=== PATIENT | female | born 1995 | race African-American/Black ===

== ENCOUNTER 2021-03-11 08:16 | Outpatient (REF) | payer OTHER, SELFPAY ==
--- NOTE | 2021-03-11 09:02 | ECG_ITS ---
Test Reason : PALPITATIONS Blood Pressure : / mmHG Vent. Rate : 062 BPM Atrial Rate : 062 BPM P-R Int : 158 ms QRS Dur : 092 ms QT Int : 394 ms P-R-T Axes : 041 017 012 degrees QTc Int : 399 ms Normal sinus rhythm with sinus arrhythmia Nonspecific T wave abnormality Abnormal ECG No previous ECGs available Referred By: Staci Littlejohn Electronically Signed By:MACI DRISCOLL
[2021-03-11 10:01] LABS: Glucose Urine UA NEG (NEG); Leukocyte Esterase Urine 2+ (NEG); Nitrite Urine NEG (NEG); PH 6.5 (5.0-8.0); Urine Blood NEG (NEG); Urine Ketones NEG (NEG); Urine Protein NEG (NEG-TRACE)
[2021-03-11 10:07] LABS: MANUAL DIFF FLAG NO
[2021-03-11 10:08] LABS: Appearance Urine CLOUDY; Color Urine YELLOW
[2021-03-11 10:15] LABS: Basophils Percent Auto 0.5 % (0-2); Eosinophils Absolute Auto 0.1 X10*3/uL (0.0-0.4); Eosinophils Percent Auto 1.5 % (0-4); Hematocrit 44.3 % (37-47); Hemoglobin 14.2 g/dl (12.0-16.0); Imm Gran Abs Auto 0.02 X10*3/uL (0.00-0.03); Imm Gran Pct Auto 0.4 % (0.0-0.4); Lymphocytes Absolute Auto 2.3 X10*3/uL (1.2-4.9); Lymphocytes Percent Auto 42.6 % (20-40); Mean Corpuscular HGB Conc 32.1 g/dl (31.0-35.0); Mean Corpuscular Hemoglobin 28.6 pg (27.0-33.0); Mean Corpuscular Volume 89.3 fL (80-98); Mean Platelet Volume 10.5 fL (9.4-12.3); Monocytes Absolute Auto 0.4 X10*3/uL (0.1-1.2); Monocytes Percent Auto 7.7 % (2-11); Neutrophils Absolute Auto 2.6 X10*3/uL (2.0-8.3); Neutrophils Percent Auto 47.3 % (45-73); Platelet Count 328 X10*3/uL (160-400); Red Blood Count 4.96 X10*6/uL (4.20-5.50); Red Cell Distribution Width 13.8 % (11.0-16.0); White Blood Count 5.5 X10*3/uL (4.8-10.8)
[2021-03-11 10:54] LABS: Alanine Aminotransferase 14 U/L (0-31); Alkaline Phosphatase 70 U/L (39-117); Anion Gap 12 (12-20); Aspartate Amino Transferase 24 U/L (5-31); Bilirubin Direct 0.2 mg/dL (0.0-0.5); Bilirubin Total 0.7 mg/dL (0.0-1.0); Blood Urea Nitrogen 10 mg/dL (9-16); Calcium 9.1 mg/dL (8.4-10.2); Carbon Dioxide 23 mmol/L (22-29); Chloride 105 mmol/L (96-108); Estimated Glomerular Filt Rate > 60; Glucose Random 78 mg/dL (60-115); Lipase 21 U/L (8-78); Sodium 136 mmol/L (135-145); Total Protein 7.4 g/dL (6.5-8.0)
[2021-03-11 11:06] LABS: Amorphous Sediment Urine 1+ /LPF; Mucus Urine 3+ /LPF; Squamous Epithelial Cell Urine 3+ /LPF
[2021-03-11 11:17] LABS: Free T4 (Free Thyroxine) 1.01 ng/dL (0.71-1.85); Thyroid Stimulating Hormone 1.01 uIU/mL (0.32-4.0)
== END 2021-03-11 08:17 | disposition home or self-care (01) ==
LOC: HO.LAB 08:16
PROVIDERS: Visit Provider Nurse Practitioner Psychiatric/Mental Health
DX: R00.2 Palpitations (principal)
CPT/HCPCS: 36415; 80053; 80076; 81001; 81003; 83690; 83735; 84439; 84443; 85025; 93005

== ENCOUNTER 2023-05-02 13:59 | Outpatient (RCR) | payer OTHER, SELFPAY ==
--- NOTE | 2023-05-03 13:15 | PC.NURSE ---
Adele called out sick 05/02/23 stating to staff that she has a fever and will be in the program tomorrow if feeling better. Adele called out sick to the program today. She called staff and stated she is being treated for Strep Throat and can not come to the program for 48 hours. [facility] staff is aware. Patient will be called and rescheduled for a reassessment/intake.
== END 2023-05-02 23:59 | disposition home or self-care (01) ==
LOC: HO.PHPA 13:59
PROVIDERS: Visit Provider Psychiatry & Neurology Psychiatry
DX: F33.1 Major depressive disorder, recurrent, moderate (principal); F43.10 Post-traumatic stress disorder, unspecified; F41.1 Generalized anxiety disorder; F10.20 Alcohol dependence, uncomplicated
CPT/HCPCS: 90791

== ENCOUNTER → 2023-05-13 11:15 | Outpatient (BNV) | payer OTHER, SELFPAY | PROVIDERS: Visit Provider Clinical Nurse Specialist Psychiatric/Mental Health | DX: F31.81 Bipolar II disorder (principal) | CPT/HCPCS: 90792; 99212; 99213; 99214 ==

== ENCOUNTER 2023-05-24 16:39 | Emergency (ER) | payer OTHER, SELFPAY ==
[2023-05-24 16:45] VITALS: BP 124/88; PULSE 79; RESP 20; TEMP 36.7; O2SAT 99; BMI 31.0
--- NOTE | 2023-05-24 16:50 | ED.PSYCH ---
HPI - Psych General Chief Complaint: Psychiatric Symptoms Stated Complaint: needs pysch eval Time Seen by Provider: 05/24/23 17:16 Related Data Previous Rx's Medication Instructions Recorded aripiprazole 15 mg tablet 7.5 mg PO DAILY #15 tabs 05/19/23 dextroamphetamine-amphetamine 10 10 mg PO DAILY #10 tabs 05/19/23 mg tablet (Adderall) hydroxyzine HCl 50 mg tablet 50 mg PO BID PRN anxiety and sleep 05/19/23 #15 tabs Allergies Allergy/AdvReac Type Severity Reaction Status Date / Time No Known Allergies Allergy Verified 05/12/23 09:50 [facility] Social History Social History Household Members: Significant Other and Children Household Members Other:: Marta Islas (partner), partner's 2 sons, 2 and 10 years old Alcohol intake: never Patient Tobacco Use Status: Current everyday Tobacco user Tobacco use type: Smokeless Tobacco Smoked in Last 30 Days: Yes Use of substances other than those prescribed or required for medical reasons: Yes Substance Use Type: Marijuana Advance Directives: No Advance Directives Information Provided: Yes Healthcare Proxy: No Guardian: No Patient : No Physical Exam Vital Signs: Vital Signs: Last Vital Signs Temp 96.8 F 05/25/23 06:46 Pulse 56 05/25/23 06:46 Resp 15 05/25/23 06:46 BP 112/77 05/25/23 06:46 Pulse Ox 100 05/25/23 06:46 O2 Del Method Room Air 05/25/23 06:46 BMI result Body Mass Index 31.0 Course Course Course Narrative: This is a rapid medical exam: Additional HPI, ROS, PE not included below will be deferred to primary provider. Patient is a 28-year-old female with history of ADHD, Bipolar II, PTSD presenting to the emergency department from [facility] with report of passive suicidal ideation, denies any plan. States she is taking her medications as prescribed. Started Abilify one week ago. Denies any homicidal ideation, auditory or visual hallucinations. Plan: pod, labs, UA, urine drug screen, Covid Reevaluation(s) Reevaluation #1: Continue with physician observation, patient presents with passive SI, no acute events overnight, plan for respite bed search and will complete medication reconciliation. Time: 07:29 Reevaluation #2: CARE Team evaluated, denies SI and has outpatient support and wants to go home. She will be staying at mom and dad's home. She is in partial program currently and can return tomorrow. CARE Team feels she is a safe discharge. Patient has safety plan in place. Time: 12:35 Medications Administered Generic Name Dose Route Start Last Admin Trade Name Freq PRN Reason Stop Dose Admin Amphetamine/Dextroamphetamine 10 mg 05/25/23 09:00 05/25/23 10:10 Amphetamine Mixed Salts 10 Mg Tablet PO 10 mg DAILY CLARE Administration Aripiprazole 7.5 mg 05/25/23 09:00 05/25/23 10:10 Aripiprazole 15 Mg Tablet PO 7.5 mg DAILY CLARE Administration Discontinued Medications Generic Name Dose Route Start Last Admin Trade Name Freq PRN Reason Stop Dose Admin Hydroxyzine HCl 50 mg 05/25/23 03:35 05/25/23 03:49 Hydroxyzine Hcl 50 Mg Tablet PO 05/25/23 03:36 50 mg ONCE ONE Administration Medical Decision Making Lab Data 05/24/23 18:05 05/24/23 18:05 Labs: Lab Results 05/24/23 05/24/23 05/24/23 Range/Units 17:30 17:30 18:05 WBC 5.2 (4.8-10.8) X10*3/uL RBC 4.99 (4.20-5.50) X10*6/uL Hgb 14.3 (12.0-16.0) g/dl Hct 44.2 (37.0-47.0) % MCV 88.6 (80.0-98.0) fL MCH 28.7 (27.0-33.0) pg MCHC 32.4 (31.0-35.0) g/dl RDW 12.9 (11.0-16.0) % Plt Count 372 (160-400) X10*3/uL MPV 9.7 (9.4-12.3) fL Immature Gran % (Auto) 0.2 (0.0-0.4) % Neut % (Auto) 51.8 (45-73) % Lymph % (Auto) 39.5 (20-40) % [place] % (Auto) 6.4 (2-11) % Eos % (Auto) 1.7 (0-4) % Baso % (Auto) 0.4 (0-2) % Lymph # (Auto) 2.1 (1.2-4.9) X10*3/uL [place] # (Auto) 0.3 (0.1-1.2) X10*3/uL Eos # (Auto) 0.1 (0.0-0.4) X10*3/uL Baso # (Auto) 0.0 (0.0-0.2) X10*3/uL Abs Immat Gran (auto) 0.01 (0.00-0.03) X10*3/uL Absolute Neuts (auto) 2.7 (2.0-8.3) x10*3/uL Absolute Nucleated RBC 0.000 (0.0-0.012) X10*3/uL Nucleated RBC % (auto) 0.0 (0.0-0.2) /100WBC Sodium (135-145) mmol/L Potassium (3.3-5.1) mmol/L Chloride (96-108) mmol/L Carbon Dioxide (22-29) mmol/L Anion Gap (12-20) BUN (9-16) mg/dL Creatinine (0.5-1.4) mg/dL Estim Creat Clear Calc Estimated GFR Random Glucose (60-115) mg/dL Calcium (8.4-10.2) mg/dL Beta HCG, Quant mIU/mL Urine Color Yellow Urine Appearance Clear Urine pH 7.5 (5.0-9.0) Ur Specific [place] 1.015 (1.005-1.025) Urine Protein Negative (Neg-Trace) mg/dL Urine Glucose (UA) Negative (Negative) mg/dL Urine Ketones Negative (Negative) mg/dL Urine Blood Negative (Negative) Urine Nitrite Negative (Negative) Ur Leukocyte Esterase Negative (Negative) Salicylates (15-30) mg/dL Urine Opiates Screen Not Detected (Not Detect) Urine Fentanyl Screen Not Detected (Not Detect) Acetaminophen (<30) mcg/mL Ur Barbiturates Screen Not Detected (Not Detect) Ur Phencyclidine Scrn Not Detected (Not Detect) Ur Amphetamines Screen Not Detected (Not Detect) U Benzodiazepines Scrn Not Detected (Not Detect) Urine Cocaine Screen Not Detected (Not Detect) U Marijuana (THC) Screen POSITIVE H (Not Detect) Ethyl Alcohol mg/dL 05/24/23 05/24/23 05/24/23 Range/Units 18:05 18:05 18:05 WBC (4.8-10.8) X10*3/uL RBC (4.20-5.50) X10*6/uL Hgb (12.0-16.0) g/dl Hct (37.0-47.0) % MCV (80.0-98.0) fL MCH (27.0-33.0) pg MCHC (31.0-35.0) g/dl RDW (11.0-16.0) % Plt Count (160-400) X10*3/uL MPV (9.4-12.3) fL Immature Gran % (Auto) (0.0-0.4) % Neut % (Auto) (45-73) % Lymph % (Auto) (20-40) % [place] % (Auto) (2-11) % Eos % (Auto) (0-4) % Baso % (Auto) (0-2) % Lymph # (Auto) (1.2-4.9) X10*3/uL [place] # (Auto) (0.1-1.2) X10*3/uL Eos # (Auto) (0.0-0.4) X10*3/uL Baso # (Auto) (0.0-0.2) X10*3/uL Abs Immat Gran (auto) (0.00-0.03) X10*3/uL Absolute Neuts (auto) (2.0-8.3) x10*3/uL Absolute Nucleated RBC (0.0-0.012) X10*3/uL Nucleated RBC % (auto) (0.0-0.2) /100WBC Sodium 140 (135-145) mmol/L Potassium 3.8 (3.3-5.1) mmol/L Chloride 105 (96-108) mmol/L Carbon Dioxide 27 (22-29) mmol/L Anion Gap 12 (12-20) BUN 13 (9-16) mg/dL Creatinine 0.84 (0.5-1.4) mg/dL Estim Creat Clear Calc 99.5 Estimated GFR > 60 Random Glucose 79 (60-115) mg/dL Calcium 9.9 D (8.4-10.2) mg/dL Beta HCG, Quant < 2 mIU/mL Urine Color Urine Appearance Urine pH (5.0-9.0) Ur Specific [place] (1.005-1.025) Urine Protein (Neg-Trace) mg/dL Urine Glucose (UA) (Negative) mg/dL Urine Ketones (Negative) mg/dL Urine Blood (Negative) Urine Nitrite (Negative) Ur Leukocyte Esterase (Negative) Salicylates < 5.0 L (15-30) mg/dL Urine Opiates Screen (Not Detect) Urine Fentanyl Screen (Not Detect) Acetaminophen < 17 (<30) mcg/mL Ur Barbiturates Screen (Not Detect) Ur Phencyclidine Scrn (Not Detect) Ur Amphetamines Screen (Not Detect) U Benzodiazepines Scrn (Not Detect) Urine Cocaine Screen (Not Detect) U Marijuana (THC) Screen (Not Detect) Ethyl Alcohol < 10 mg/dL Discharge Plan Discharge Clinical Impression: Post traumatic stress disorder, Major depressive disorder, recurrent severe without psychotic features, Suicidal ideation Patient Disposition: Home, Self-Care Instructions: Depression (ED), Post Traumatic Stress Disorder (ED) Additional Instructions: 1. Resume all home medications as prescribed. 2. Please continue to attend our partial program as scheduled, they will significantly help you. However, please do not hesitate to return to the emergency room should you feel overwhelmed. Prescriptions: No Action aripiprazole 15 mg tablet 7.5 mg PO DAILY Qty: 15 0RF hydroxyzine HCl 50 mg tablet 50 mg PO BID PRN (Reason: anxiety and sleep ) Qty: 15 0RF Rx Instructions: take 1/2 to 1 tab up to twice a day dextroamphetamine-amphetamine [Adderall] 10 mg tablet 10 mg PO DAILY Qty: 10 0RF Rx Instructions: Partial Fill upon patient request. Interventions: [place]-Suicide Risk Severity Scale Last Done: 05/25/23 06:38
[2023-05-24 17:37] LABS: Appearance Urine Clear; Color Urine Yellow; Glucose Urine UA Negative (Negative); Leukocyte Esterase Urine Negative (Negative); Nitrite Urine Negative (Negative); PH 7.5 (5.0-9.0); Specific Gravity - Urine 1.015 (1.005-1.025); Urine Blood Negative (Negative); Urine Ketones Negative (Negative); Urine Protein Negative (Neg-Trace)
[2023-05-24 17:41] VITALS: BP 123/81; PULSE 75; RESP 18; TEMP 36.2; O2SAT 98
[2023-05-24 17:48] LABS: Amphetamine Screen Urine Not Detected (Not Detect); Barbiturates, Urine Not Detected (Not Detect); Benzodiazepines Screen Urine Not Detected (Not Detect); Cannabinoid Screen Urine POSITIVE (Not Detect); Cocaine Screen Urine Not Detected (Not Detect); Fentanyl, urine Not Detected (Not Detect); Opiate Screen Urine Not Detected (Not Detect); Phencyclidine Screen Urine Not Detected (Not Detect)
--- NOTE | 2023-05-24 17:53 | ED.PSYCH ---
HPI - Psych General Chief Complaint: Psychiatric Symptoms Stated Complaint: needs pysch eval Time Seen by Provider: 05/24/23 17:16 History of Present Illness HPI Narrative: Patient is a 28-year-old female with a history of ADHD asthma bipolar previous history of alcohol use presented today with having suicidal thoughts. Positive marijuana use no other recreational drug use. Drinks. Has no specific plan of how to hurt herself. No fever no chills no chest pain or shortness of breath no diaphoresis Related Data Previous Rx's Medication Instructions Recorded aripiprazole 15 mg tablet 7.5 mg PO DAILY #15 tabs 05/19/23 dextroamphetamine-amphetamine 10 10 mg PO DAILY #10 tabs 05/19/23 mg tablet (Adderall) hydroxyzine HCl 50 mg tablet 50 mg PO BID PRN anxiety and sleep 05/19/23 #15 tabs Allergies Allergy/AdvReac Type Severity Reaction Status Date / Time No Known Allergies Allergy Verified 05/12/23 09:50 Review of Systems Review of Systems: No fever no chills no chest pain or shortness breath no nausea no vomiting Yes all other systems are reviewed and are negative [facility] Past Medical History Attestation statement: The following information was validated with the patient. Social History Social History Household Members: Significant Other and Children Household Members Other:: Marta Islsa (partner), partner's 2 sons, 2 and 10 years old Alcohol intake: never Patient Tobacco Use Status: Current everyday Tobacco user Tobacco use type: Smokeless Tobacco Smoked in Last 30 Days: Yes Use of substances other than those prescribed or required for medical reasons: Yes Substance Use Type: Marijuana Advance Directives: No Advance Directives Information Provided: Yes Healthcare Proxy: No Guardian: No Patient : No Physical Exam Vital Signs: Vital Signs: Last Vital Signs Temp 97.1 F 05/24/23 17:41 Pulse 75 05/24/23 17:41 Resp 18 05/24/23 17:41 BP 123/81 05/24/23 17:41 Pulse Ox 98 05/24/23 17:41 O2 Del Method Room Air 05/24/23 17:41 BMI result Body Mass Index 31.0 Appearance: Alert. Oriented X3. No acute distress. Eyes: Pupils equal, round and reactive to light. ENT: Pharynx normal. Neck: Normal inspection. Neck supple. No lymph nodes noted. No crepitus CVS: Normal heart rate and rhythm. Pulses normal. Normal S1 and S2 Respiratory: No respiratory distress. Breath sounds normal. No Wheezing. No rales Abdomen: Soft and nontender. No rigidity. No distention. good BS x4 Skin: Skin warm and dry. Normal skin color. Normal skin turgor. Extremities: No lower extremity edema. Neurovascular intact to all extremities. No Lacerations. No Rash Neuro: Oriented X 3. No motor deficit. No sensory deficit. Moving all extermities. No slurred speech. Cranial nerves grossly intact Medical Decision Making Medical Decision Making [facility] Narrative: Well appearing neurologically intact no acute distress. Tox screen positive for marijuana only. Labs ordered. Patient to be evaluated by crisis. Currently in stable condition. Patient evaluated by care team. Currently a bed search. In no distress. Differential Diagnosis Bipolar, ADHD, depression, PTSD Lab Data [facility] Lab Attestation statement: I reviewed the patient's lab results. 05/24/23 18:05 05/24/23 18:05 Labs: Lab Results 05/24/23 05/24/23 05/24/23 Range/Units 17:30 17:30 18:05 WBC 5.2 (4.8-10.8) X10*3/uL RBC 4.99 (4.20-5.50) X10*6/uL Hgb 14.3 (12.0-16.0) g/dl Hct 44.2 (37.0-47.0) % MCV 88.6 (80.0-98.0) fL MCH 28.7 (27.0-33.0) pg MCHC 32.4 (31.0-35.0) g/dl RDW 12.9 (11.0-16.0) % Plt Count 372 (160-400) X10*3/uL MPV 9.7 (9.4-12.3) fL Immature Gran % (Auto) 0.2 (0.0-0.4) % Neut % (Auto) 51.8 (45-73) % Lymph % (Auto) 39.5 (20-40) % [place] % (Auto) 6.4 (2-11) % Eos % (Auto) 1.7 (0-4) % Baso % (Auto) 0.4 (0-2) % Lymph # (Auto) 2.1 (1.2-4.9) X10*3/uL [place] # (Auto) 0.3 (0.1-1.2) X10*3/uL Eos # (Auto) 0.1 (0.0-0.4) X10*3/uL Baso # (Auto) 0.0 (0.0-0.2) X10*3/uL Abs Immat Gran (auto) 0.01 (0.00-0.03) X10*3/uL Absolute Neuts (auto) 2.7 (2.0-8.3) x10*3/uL Absolute Nucleated RBC 0.000 (0.0-0.012) X10*3/uL Nucleated RBC % (auto) 0.0 (0.0-0.2) /100WBC Sodium (135-145) mmol/L Potassium (3.3-5.1) mmol/L Chloride (96-108) mmol/L Carbon Dioxide (22-29) mmol/L Anion Gap (12-20) BUN (9-16) mg/dL Creatinine (0.5-1.4) mg/dL Estim Creat Clear Calc Estimated GFR Random Glucose (60-115) mg/dL Calcium (8.4-10.2) mg/dL Beta HCG, Quant mIU/mL Urine Color Yellow Urine Appearance Clear Urine pH 7.5 (5.0-9.0) Ur Specific [place] 1.015 (1.005-1.025) Urine Protein Negative (Neg-Trace) mg/dL Urine Glucose (UA) Negative (Negative) mg/dL Urine Ketones Negative (Negative) mg/dL Urine Blood Negative (Negative) Urine Nitrite Negative (Negative) Ur Leukocyte Esterase Negative (Negative) Salicylates (15-30) mg/dL Urine Opiates Screen Not Detected (Not Detect) Urine Fentanyl Screen Not Detected (Not Detect) Acetaminophen (<30) mcg/mL Ur Barbiturates Screen Not Detected (Not Detect) Ur Phencyclidine Scrn Not Detected (Not Detect) Ur Amphetamines Screen Not Detected (Not Detect) U Benzodiazepines Scrn Not Detected (Not Detect) Urine Cocaine Screen Not Detected (Not Detect) U Marijuana (THC) Screen POSITIVE H (Not Detect) Ethyl Alcohol mg/dL 05/24/23 05/24/23 05/24/23 Range/Units 18:05 18:05 18:05 WBC (4.8-10.8) X10*3/uL RBC (4.20-5.50) X10*6/uL Hgb (12.0-16.0) g/dl Hct (37.0-47.0) % MCV (80.0-98.0) fL MCH (27.0-33.0) pg MCHC (31.0-35.0) g/dl RDW (11.0-16.0) % Plt Count (160-400) X10*3/uL MPV (9.4-12.3) fL Immature Gran % (Auto) (0.0-0.4) % Neut % (Auto) (45-73) % Lymph % (Auto) (20-40) % [place] % (Auto) (2-11) % Eos % (Auto) (0-4) % Baso % (Auto) (0-2) % Lymph # (Auto) (1.2-4.9) X10*3/uL [place] # (Auto) (0.1-1.2) X10*3/uL Eos # (Auto) (0.0-0.4) X10*3/uL Baso # (Auto) (0.0-0.2) X10*3/uL Abs Immat Gran (auto) (0.00-0.03) X10*3/uL Absolute Neuts (auto) (2.0-8.3) x10*3/uL Absolute Nucleated RBC (0.0-0.012) X10*3/uL Nucleated RBC % (auto) (0.0-0.2) /100WBC Sodium 140 (135-145) mmol/L Potassium 3.8 (3.3-5.1) mmol/L Chloride 105 (96-108) mmol/L Carbon Dioxide 27 (22-29) mmol/L Anion Gap 12 (12-20) BUN 13 (9-16) mg/dL Creatinine 0.84 (0.5-1.4) mg/dL Estim Creat Clear Calc 99.5 Estimated GFR > 60 Random Glucose 79 (60-115) mg/dL Calcium 9.9 D (8.4-10.2) mg/dL Beta HCG, Quant < 2 mIU/mL Urine Color Urine Appearance Urine pH (5.0-9.0) Ur Specific [place] (1.005-1.025) Urine Protein (Neg-Trace) mg/dL Urine Glucose (UA) (Negative) mg/dL Urine Ketones (Negative) mg/dL Urine Blood (Negative) Urine Nitrite (Negative) Ur Leukocyte Esterase (Negative) Salicylates < 5.0 L (15-30) mg/dL Urine Opiates Screen (Not Detect) Urine Fentanyl Screen (Not Detect) Acetaminophen < 17 (<30) mcg/mL Ur Barbiturates Screen (Not Detect) Ur Phencyclidine Scrn (Not Detect) Ur Amphetamines Screen (Not Detect) U Benzodiazepines Scrn (Not Detect) Urine Cocaine Screen (Not Detect) U Marijuana (THC) Screen (Not Detect) Ethyl Alcohol < 10 mg/dL Discharge Plan Discharge Clinical Impression: Post traumatic stress disorder, Major depressive disorder, recurrent severe without psychotic features, Suicidal ideation Patient Disposition: Still a Patient Prescriptions: No Action aripiprazole 15 mg tablet 7.5 mg PO DAILY Qty: 15 0RF hydroxyzine HCl 50 mg tablet 50 mg PO BID PRN (Reason: anxiety and sleep ) Qty: 15 0RF Rx Instructions: take 1/2 to 1 tab up to twice a day dextroamphetamine-amphetamine [Adderall] 10 mg tablet 10 mg PO DAILY Qty: 10 0RF Rx Instructions: Partial Fill upon patient request. Interventions: [place]-Suicide Risk Severity Scale Last Done: 05/24/23 17:39
[2023-05-24 18:09] LABS: MANUAL DIFF FLAG NO
[2023-05-24 18:11] LABS: Basophils Percent Auto 0.4 % (0-2); Eosinophils Absolute Auto 0.1 X10*3/uL (0.0-0.4); Eosinophils Percent Auto 1.7 % (0-4); Hematocrit 44.2 % (37.0-47.0); Hemoglobin 14.3 g/dl (12.0-16.0); Imm Gran Abs Auto 0.01 X10*3/uL (0.00-0.03); Imm Gran Pct Auto 0.2 % (0.0-0.4); Lymphocytes Absolute Auto 2.1 X10*3/uL (1.2-4.9); Lymphocytes Percent Auto 39.5 % (20-40); Mean Corpuscular HGB Conc 32.4 g/dl (31.0-35.0); Mean Corpuscular Hemoglobin 28.7 pg (27.0-33.0); Mean Corpuscular Volume 88.6 fL (80.0-98.0); Mean Platelet Volume 9.7 fL (9.4-12.3); Monocytes Absolute Auto 0.3 X10*3/uL (0.1-1.2); Monocytes Percent Auto 6.4 % (2-11); Neutrophils Absolute Auto 2.7 x10*3/uL (2.0-8.3); Neutrophils Percent Auto 51.8 % (45-73); Platelet Count 372 X10*3/uL (160-400); Red Blood Count 4.99 X10*6/uL (4.20-5.50); Red Cell Distribution Width 12.9 % (11.0-16.0); White Blood Count 5.2 X10*3/uL (4.8-10.8)
[2023-05-24 18:38] LABS: Acetaminophen LAB < 17 mcg/mL (<30); Anion Gap 12 (12-20); Blood Urea Nitrogen 13 mg/dL (9-16); Calcium 9.9 mg/dL (8.4-10.2); Carbon Dioxide 27 mmol/L (22-29); Chloride 105 mmol/L (96-108); Creatinine Clr Calc Pharmacy 99.5; Estimated Glomerular Filt Rate > 60; Ethanol < 10 mg/dL; Glucose Random 79 mg/dL (60-115); HCG Quantitative < 2 mIU/mL; Potassium 3.8 mmol/L (3.3-5.1); Salicylate < 5.0 mg/dL (15-30); Sodium 140 mmol/L (135-145)
--- NOTE | 2023-05-24 21:25 | MHC.CARE ---
CCS fax completed to [facility]
[2023-05-25] MEDS: hydrOXYzine HCL 50 MG TABLET PO (03:49)
--- NOTE | 2023-05-25 06:45 | PC.NURSE ---
Patient slept through the night, no distress observed/reported, patient was up once requested her hydroxyzine 50 mg administered as ordered at 0349 with + effect, behavior non concerning, disposition per care team is respite bed search, med rec completed/pending provider's approval, will continue to monitor.
[2023-05-25 06:46] VITALS: BP 112/77; PULSE 56; RESP 15; TEMP 36; O2SAT 100
[2023-05-25] MEDS: ARIPiprazole 15 MG TABLET 7.5 MG PO (10:10)
[2023-05-25] MEDS: Amphetamine Mixed Salts 10 MG TABLET PO (10:10)
== END 2023-05-25 13:20 | disposition home or self-care (01) ==
PROVIDERS: Registered Nurse Emergency; Emergency Provider Emergency Medicine Emergency Medical Services
DX: F33.1 Major depressive disorder, recurrent, moderate (principal); R45.851 Suicidal ideations; F43.10 Post-traumatic stress disorder, unspecified; F12.90 Cannabis use, unspecified, uncomplicated; F17.200 Nicotine dependence, unspecified, uncomplicated; Z71.6 Tobacco abuse counseling; Z79.899 Other long term (current) drug therapy
CPT/HCPCS: 36415; 80048; 80143; 80179; 80307; 81003; 84702; 85025; 99284; S9485

== ENCOUNTER 2023-05-31 11:15 | Outpatient (RCR) | payer OTHER, SELFPAY ==
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
[2023-05-12 12:52] VITALS: BP 115/83; PULSE 75; RESP 16; TEMP 37.1
[2023-05-12 12:55] VITALS: BMI 31.0
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
--- NOTE | 2023-05-12 15:53 | HO.PHP ---
case reviewed and opened in clinical team
--- NOTE | 2023-05-17 09:51 | HO.PHP ---
I called the client this morning re absent from the program. She states that she was going to call us because she has an appointment today. She will be in tomorrow. She states that she is safe.
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
--- NOTE | 2023-05-20 14:00 | HO.PHP ---
PHP staff met with Adele after the second group. Adele informed the clinician that she was struggling in the last group because she was not expecting that the routine of her day would change. Adele was able to recall that last Tuesday she had completed weekend planning. Adele mentioned that she does not like change and when change occurs she gets into a mood and has a hard time getting out of that mood. PHP staff explored with Adele if she has any coping skills she can utilize. Adele voiced that she struggles with utilizing coping skills when she is in that mood. PHP staff was receptive. Adele talked about how she enjoys the substance group and she finds that to be helpful. PHP staff asked Adele if she would like any additional resources or worksheets that she can work on this weekend. Adele disclosed that she is all set. Adele talked about how she doesn't use because of her girlfriend and was able to identify when it became a problem for her. Adele mentioned although she recognized it was a problem, she still wouldn't have discontinued if she wasn't with her partner. PHP staff was receptive and praised her for being able to acknowledge at a point it was a problem. PHP staff provided psycho-education around the stages. Adele was receptive.
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
--- NOTE | 2023-05-24 16:09 | HO.PHP ---
I met with the client and she reported suicidal thoughts with hopelessness about her relationship. We discussed being assessed by crisis which she agreed to . The client met with the doctor and stated that she would prefer to go to respite. She made a plan to call her [facility] field nurse case manager to get help getting a [facility] respite placement. She states that she will continue to wait for her [facility] field nurse case manager and if she goes home she will be safe. If she has an argument with her girlfriend she will stay at her best friends house. She does state that she will be safe.
--- NOTE | 2023-05-24 16:53 | MHC.CARE ---
Pt walked over by [facility] after expressing SI, could not state plan or intent. Pt called [facility] worker to request [facility] respite bed, however no beds available. Pt reported increased suicidal thoughts so [facility] staff Jacquelin (clinician) walked pt to ED. Pt currently reporting trigger is relationship issues with her current girlfriend.
--- NOTE | 2023-05-24 17:13 | HO.PHP ---
Adele had entered into the offices around 4:45 PM informing the PHP staff member that [facility] was unable to get a respite bed placement at this time and they encouraged her to go to [facility] Crisis if she is feeling unsafe. PHP staff explored if she is currently feeling unsafe. Adele disclosed that she is. [facility] staff suggested getting evaluated by the care team here. Adele agreed and contacted her mother to inform her. [facility] staff waited with Adele until she met with Triage, in which [facility] staff member then met with the care team to update them around SI. Care team was receptive and explored what triggered the event, in which the clinician noted a conversation with the girlfriend. Care team was receptive and is going to further assess safety.
--- NOTE | 2023-05-26 13:40 | PC.NURSE ---
Adele reports dry patches on her legs and questioning whether Abilify or Hydroxyzine causing this. She also questioned having SI from the above medications, denied having SI today. Reviewed with Elizabeth Pinzon APRN, who advised patient to use lotion for dry skin and hydrate herself and no medication changes at this time. Adele stated she has been putting on Aloe and this has been helping.
--- NOTE | 2023-05-26 15:12 | HO.PHPPROGNO ---
Subjective Subjective Date of Service: 05/26/23 Reason For Visit: ADHD MERCEDES,MDD,PTSD,AUD Interim History: pt could not get adderall due to insurance not covering it. ritalin is also not covered by insurance; at this time will defer stimulant treatmetn due to recnt SI and need for crisis intervention; continues to need mood stability and continue program fro coping skills Review of Systems Review of Systems unremarkable Mental Status Exam Mental Status Exam Narrative: pleasant. Engaged. Well presented. Organized. Feeling depressed and anxious in the context of interactions with partner. Intermittent hopelessness and thoughts of and suicidal ideas. Also wants help and support. No HI. No agitation. No psychosis. Insight and judgment fair Patient Appearance: Well Grooomed and Appropriate Patient Orientation: Person, Place, Time and Situation Level of Consciousness: Awake and Restless Patient Behavior: Appropriate, Cooperative and Good Eye Contact Behavior Comments: fidgety Mood Description: Anxious Affect Description: Appropriate and Anxious Patient Cognition Impaired: No Ability to Follow Directions: Good Speech Pattern: Clear Memory Description: Intact, Remote Impaired and Normal for Patient Diagnostics Vital Signs (24Hr): BMI result Body Mass Index 31.0 Assessment & Plan Assessment & Plan (1) Post traumatic stress disorder: Status: Acute Code(s): F43.10 - Post-traumatic stress disorder, unspecified (2) Alcohol use disorder, moderate, in early remission: Status: Acute Code(s): F10.21 - Alcohol dependence, in remission (3) Bipolar II disorder, moderate, depressed, with anxious distress: Status: Acute Code(s): F31.81 - Bipolar II disorder (4) Adult ADHD (attention deficit hyperactivity disorder): Status: Acute Code(s): F90.9 - Attention-deficit hyperactivity disorder, unspecified type Plan will defer stimulant treatment due to recent SI and need for crisis intervention; continues to need mood stability and continue program fro coping skills Reason for contiued partial hosp. stay Substantial Risk for: harm to self, inability to function and rapid decompensation Certification I certify that partial hospital treatment is medically necessary due to the symptoms and problems resulting from the patient's mental illness and the failure to treat the patient at the partial hospital level of care would likely result in the patient requiring inpatient psychiatric care which could not be prevented at a less intensive level of care. Total time managing care of this patient today ____ minutes. Discharge Plan Discharge Attending provider: William Danielle Medications: New aripiprazole 15 mg tablet 7.5 mg PO DAILY Qty: 15 0RF hydroxyzine HCl 50 mg tablet 50 mg PO BID PRN (Reason: anxiety and sleep ) Qty: 15 0RF Rx Instructions: take 1/2 to 1 tab up to twice a day dextroamphetamine-amphetamine [Adderall] 10 mg tablet 10 mg PO DAILY Qty: 10 0RF Rx Instructions: Partial Fill upon patient request.
--- NOTE | 2023-05-31 11:28 | HO.PHPPROGNO ---
Subjective Subjective Date of Service: 05/31/23 Reason For Visit: ADHD MERCEDES,MDD,PTSD,AUD Interim History: Adele is seen for follow-up and discharge today. She has found the program to be extremely helpful to her in she is doing well on her medications, Abilify 7.5 mg, hydroxyzine 25-50 mg p.r.n. for anxiety and she was also started on Adderall 10 mg which she has not found to be helpful and will stop since she does not have a prescriber immediately available. She is going to be seen at in and will eventually be assigned a prescriber. A 1 month worth of the 1st to medications with a refill were sent in. She denies any side effects. Side effects from medications: Yes (Dry skin patches to 1 of the medications) Review of Systems Review of Systems Yes all other systems are reviewed and are negative Mental Status Exam Mental Status Exam Narrative: In today's visit she is alert, oriented and pleasant. Normal speech. Good eye contact. Affect is appropriate and varied. No signs of psychosis. Cognitively is intact. No SI. Judgment is intact Diagnostics Vital Signs (24Hr): BMI result Body Mass Index 31.0 Assessment & Plan Assessment & Plan (1) Bipolar II disorder, moderate, depressed, with anxious distress: Status: Acute Code(s): F31.81 - Bipolar II disorder Plan Continue Abilify 7.5 mg, hydroxyzine 25-50 mg p.r.n. and discontinue Adderall and she will pursue these with a prescriber at and to be assigned. She does have an intake Certification I certify that partial hospital treatment is medically necessary due to the symptoms and problems resulting from the patient's mental illness and the failure to treat the patient at the partial hospital level of care would likely result in the patient requiring inpatient psychiatric care which could not be prevented at a less intensive level of care. Total time managing care of this patient today ____ minutes. Discharge Plan Discharge Attending provider: William Danielle Medications: Continued aripiprazole 15 mg tablet 7.5 mg PO DAILY Qty: 15 1RF Changed hydroxyzine HCl 50 mg tablet 50 mg PO DAILY PRN (Reason: anxiety and sleep ) Qty: 30 1RF Rx Instructions: take 1/2 to 1 tab up to twice a day Stand Alone Forms: Patient Portal Discharge page Patient Education: Depression (ED), Post Traumatic Stress Disorder (ED), Generalized Anxiety Disorder (ED), Abuse of Alcohol (ED)
--- NOTE | 2023-06-03 08:33 | HO.PHP ---
A call was made to [facility] on 05/31 to confirm clients appointment time and plan for both therapist and precriber. Once she sees her therapist on 06/02 she will then be set up with a prescriber.
== END 2023-05-31 23:59 | disposition home or self-care (01) ==
LOC: HO.PHPA 11:15
PROVIDERS: Visit Provider Psychiatry & Neurology Psychiatry
DX: F31.81 Bipolar II disorder (principal); F43.10 Post-traumatic stress disorder, unspecified; F90.9 Attention-deficit hyperactivity disorder, unspecified type; F10.21 Alcohol dependence, in remission
CPT/HCPCS: 90791; 90853

== ENCOUNTER 2023-06-03 10:25 | Outpatient (AMB) | payer OTHER, SELFPAY ==
--- NOTE | 2023-06-03 10:35 | A.OFFPC_ITS ---
Vital Signs 06/03/23 10:38 Height 5 ft 3 in Weight 178 lb 8 oz BMI 31.6 BP 90/60 Blood Pressure Location Lt brachial Position Sitting Pulse 92 Pulse Source Pulse Oximeter Pulse Oximetry (%) 100 Oxygen Delivery Method Room Air Intake Visit Reasons: new patient requesting physical Intake Note: Patient is a new patient here to establish care for Mild Gastritis, ADHD, Depression and Anxiety. Transferring care from unknown. Medical records have not been requested and have not received. Cash Applications Coordinator Required: No Information Interpreted: non-clinical & clinical Line Construction Superintendent: Not Required per policy Accompanied by: Self / Same As Patient Allergies No Known Allergies Allergy (Verified 06/03/23 10:55) Medication List - Last Reconciled 06/03/23 by LAXMI Phillips aripiprazole 7.5 mg (1/2 x 15 mg) PO DAILY hydroxyzine HCl 50 mg PO DAILY PRN Tobacco use date assessed: 06/03/23 Dental Screening Dental Screen Date: 06/03/23 Did you have a dental visit in the last 12 months?: No Did you have a dental problem in the last 6 months where you did not have access to dental care?: No Was dental information given to patient?: No HPI HPI Comments History of Present Illness Details 20-year-old female new patient presents today to establish care. Past medical history significant for ADHD, bipolar type 2, depression, PTSD and alcohol use disorder. B/p low 90/60, patient denies any lightheadedness, dizziness or syncope. Blood pressure rechecked 94/60. Patient reports that she was recently seen in the emergency room for suicidal ideations. Patient was discharged to agency partial hospitalization program. Patient was referred to [facility] and has spoke with counselor x1 and she will be set up with a medication provider. TDAP: unknown, given in office today. [facility] History History of surgery on wrist History of knee surgery Family History Mother Substance use disorder Social History (Updated 06/03/23 @ 10:56 by LAXMI Phillips) Household Members: Significant Other and Children Household Members Other:: Marta Islas (partner), partner's 2 sons, 2 and 10 years old Housing: House Alcohol intake: never Patient Tobacco Use Status: Current everyday Tobacco user Tobacco use type: Smokeless Tobacco e-Cigarette/Vaping Use: Currently Using Frequency of e-Cigarette/Vaping Use: daily Second Hand Smoke Exposure: No Substance Use Type: Marijuana Substance Use Frequency: Occasionally service: No Current occupational status: unemployed and student Cognitive needs: No Hearing needs: No Vision needs: Yes (glasses) Questionnaire PHQ-9 Over the last 2 weeks, how often have you been bothered by any of the following problems? 1. Little interest or pleasure in doing things: more than half the days 2. Feeling down, depressed, or hopeless: more than half the days 3. Trouble falling or staying asleep, or sleeping too much: nearly every day 4. Feeling tired or having little energy: nearly every day 5. Poor appetite or overeating: nearly every day 6. Feeling bad about yourself - or that you are a failure or have let yourself or your family down: several days 7. Trouble concentrating on things, such as reading the newspaper or watching television: nearly every day 8. Moving or speaking so slowly that other people could have noticed. Or the opposite - being so fidgety or restless that you have been moving around a lot more than usual: not at all 9. Thoughts that you would be better off or of hurting yourself in some way: several days Total score: 18 Depression Screening Interpretation: Positive [id number] - PHQ-9 Billing: Yes Source: Developed by Drs. Leeroy Castillo, Peg David, Santino Duque and colleagues, with an educational bryan from [employer]. Thrive Questionnaire Date Thrive assessed: 06/03/23 I am a: Patient What is your living situation today?: I have a steady place to live Within the past 12 months, did the food you bought not last and you didn't have the money to get more?: Never true Within the past 12 months, did you worry whether your food would run out before you got money to buy more?: Never true Do you have trouble paying for medicines?: No Do you have trouble getting transportation to medical appointments?: No Do you have trouble paying your heating and electricity bill?: No Do you have trouble taking care of your child, family member or friend?: No Do you have trouble with day-to-day activities such as bathing, preparing meals, shopping, managing finances, etc.?: No Are you currently unemployed and looking for a job?: No Are you interested in more education?: No Currently or been in a relationship where the following occur: no concerns reported AUDIT C Alcohol Use Questionnaire (AUDIT-C) 1. How often do you have a drink containing alcohol?: Never Total Score: 0 MERCEDES-7 AMB Questionnaire MERCEDES-7 Date MERCEDES - 7 assessed: 06/03/23 Feeling nervous, anxious, or on edge: 3 = Nearly every day Not being able to stop or control worryin = Nearly every day Worrying too much about different things: 3 = Nearly every day Trouble relaxin = Nearly every day Being so restless that it is hard to sit still: 1 = Several days Becoming easily annoyed or irritable: 3 = Nearly every day Feeling afraid as if something awful might happen: 3 = Nearly every day Total MERCEDES-7 score (0-4 normal; 5-9 mild; 10-14 moderate; 15-21 severe): 19 Source: Developed by Drs. Leeroy Castillo, Peg David, Santino Duque and colleagues, with an educational bryan from [employer]. MERCEDES-7 Assessment Billing MERCEDES-7 Assessment Tool: MERCEDES-7 Assessment 25794 Review of Systems Const Denies chills, Denies fatigue, Denies fever(s) and Denies poor appetite Eyes Denies no additional complaints ENT Reports Normal hearing present Card Denies chest pain, Denies syncope, Denies rapid heart rate and Denies dyspnea Resp Denies cough and Denies dyspnea GI Denies change in stool character, Denies constipation, Denies diarrhea, Denies nausea and Denies vomiting Denies urinary frequency, Denies dysuria and Denies urinary urgency Neuro Reports Normal hearing present, Denies confusion and Denies syncope Psych Denies confusion Endo Denies fatigue Physical exam (Primary Care) Vital Signs: Last Vital Signs Pulse 92 06/03/23 10:38 BP 90/60 06/03/23 10:38 Pulse Ox 100 06/03/23 10:38 Oxygen Delivery Method Room Air 06/03/23 10:38 BMI result Body Mass Index 31.6 Tobacco/Smoking Status: Tobacco use Status Tobacco use date assessed 06/03/23 06/03/23 10:47 Patient Tobacco Use Status Current everyday Tobacco 06/03/23 10:56 Tobacco use type Smokeless Tobacco 06/03/23 10:56 e-Cigarette/Vaping Use Currently Using 06/03/23 10:56 PHQ-9: PHQ-9 Score PHQ-9: Total score 18 06/03/23 11:20 Depression Screening Interpretation: Positive Thrive Assessment: Date of Thrive Assessment Date Thrive assessed 06/03/23 06/03/23 10:47 Currently or been in a relationship where the following occur: no concerns reported Const General: No confusion Orientation/consciousness: No confusion HENMT Head: Yes normocephalic and Yes atraumatic Ears: external ears normal and TM's normal bilaterally General nose exam: Normal external nose present and Normal nasal mucous membranes and turbinates present Face and sinus: Yes normal facial exam and Yes sinuses nontender Mouth: moist mucous membranes Throat: Yes tonsils normal Eyes Conjunctivae: conjunctivae normal Sclerae: sclerae normal Pupils: Equal, round and reactive pupils present and Pupils normal by confrontation EOM: EOMs intact bilaterally Direct Ophthalmoscopy: normal light reflex Neck Neck: Yes no lymphadenopathy and Yes supple Thyroid: Thyroid normal Chest Chest palpation & inspection: normal inspection of the chest Resp Effort & Inspection: normal respiratory effort Auscultation: clear to auscultation bilaterally, no crackles, no rhonchi and no wheezes Cardio Rate: regular rate Rhythm: regular rhythm Peripheral pulses: radial pulses present and dorsalis pedis present GI Inspection: Yes normal to inspection Palpation (GI): Soft to palpation, nontender and No hepatosplenomegaly present Auscultation: normoactive bowel sounds Skin General skin exam: no rashes or lesions noted Neuro General: No confusion Cranial nerves: Yes Equal, round and reactive pupils present and Yes Normal hearing present Cognition (Neuro): normal cognition Gait exam (Neuro): Normal gait present Motor exam (neuro): 5/5 motor strength present throughout Deep tendon reflexes (DTR's): Right brachioradialis reflex intensity grade: 2+, Left brachioradialis reflex intensity grade: 2+, Right patellar reflex intensity grade: 2+ and Left patellar reflex intensity grade: 2+ Extrem General: No edema Immunizations Adacel(Tdap Adolesn/Adult)(PF) 2 Lf-(2.5-5-3-5)-5 Lf/0.5 mL IM syringe Performing Provider: LAXMI Phillips [facility] [place] [facility] Administered by: Taryn Sol RN on 06/03/23 11:20 Dose Route Admin Location Dispensed Lot Number Expiration Date NDC [employer] Administrator 0.5 mL IM Left Deltoid 0.5 mL [id number] 06/21/25 18470-899-47 Anzode VIS Given Date VIS Provided VIS Publication Date 06/03/23 Single Vaccine 21 Eligibility Eligibility Date Funding Source Not VF Eligible 06/03/23 Private Assessment and Plan Assessment & Plan (1) Bipolar II disorder, moderate, depressed, with anxious distress: Code(s): F31.81 - Bipolar II disorder Plan: Continue on current medication. Continue to follow with PH and for counseling and establish care with medication provider. (2) Major depressive disorder, recurrent severe without psychotic features: Code(s): F33.2 - Major depressive disorder, recurrent severe without psychotic features Plan: Continue on current medication. Continue to follow with PH and for counseling and establish care with medication provider. If she develops any thoughts of SI/HI please call crisis hotline or seek emergenc medical attention. (3) Physical exam, annual: Code(s): Z00.00 - Encounter for general adult medical examination without abnormal findings Plan: Follow up in 1 year. Orders: Orders Comprehensive Met. Panel Today Z13.1 - Encounter for screening for diabetes mellitus Vitamin D 25-OH Total Today Z13.21 - Encounter for screening for nutritional disorder TDaP State Immunization Today Z23 - Encounter for immunization Complete Blood Count Auto Diff Today Z13.0 - Encounter for screening for diseases of the blood and blood-forming organs and certain disorders involving the immune mechanism TSH reflex Free T4 Today Z13.29 - Encounter for screening for other suspected endocrine disorder Coding Level of Care Code New Pt Prev Care 18-39yr([id number] Diagnoses Bipolar II disorder, moderate, depressed, with anxious distress F31.81 Major depressive disorder, recurrent severe without psychotic features F33.2 Physical exam, annual Z00.00 Additional Codes MERCEDES-7 Assessment Billing - MERCEDES-7 Assessment Tool: MERCEDES-7 Assessment 88237 ([id number])
[2023-06-03 10:38] VITALS: BP 90/60; PULSE 92; O2SAT 100; BMI 31.6
== END 2023-06-03 11:19 | disposition home or self-care (01) ==
PROVIDERS: PCP Nurse Practitioner Family; Visit Provider Nurse Practitioner Family
DX: Z00.00 Encounter for general adult medical examination without abnormal findings (principal); F31.81 Bipolar II disorder; Z23 Encounter for immunization
CPT/HCPCS: 90471; 90715; 99385